=== PATIENT | female | born 1990 | race American Indian/Alaskan Native ===

== ENCOUNTER 2021-10-28 10:52 | Emergency (ER) | payer MEDICAID ==
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
[2021-10-28 12:31] VITALS: BP 127/82
== END 2021-10-28 12:31 | disposition home or self-care (01) ==
LOC: ED 10:52
DX: M54.9 Dorsalgia, unspecified (principal); W22.8XXA Striking against or struck by other objects, initial encounter; Y93.89 Activity, other specified; Y92.89 Other specified places as the place of occurrence of the external cause; Y99.8 Other external cause status
CPT/HCPCS: 99282